=== PATIENT | male | born 1935 | race Caucasian/White ===

== ENCOUNTER 2024-02-13 14:24 | Outpatient (CLI) | payer MEDICARE ==
[~2024-02-13 14:24] MED LIST: ALLO100T PO; AMLO5TAB16 PO; ASPI-1071 PO; ATOR40TA72 PO; FURO20TA4 PO; GABA300T28 PO; HYDR-3972 PO; LATANOPROST EACHEYE; LEVO150T8 PO; METO-384 PO; SYMBICORT INH
[2024-02-13] MEDS ORDERED: iohexol 350 MG/ML 50ML vial IV ONE (15:01)
[2024-02-13] MEDS ORDERED: iohexol 350MG/ML 100ml bottle IV ONE (15:01)
== END 2024-02-13 23:59 | disposition home or self-care (01) ==
LOC: RAD 14:24
PROVIDERS: ATTEND Internal Medicine Interventional Cardiology
DX: I70.213 Atherosclerosis of native arteries of extremities with intermittent claudication, bilateral legs (principal); I71.40 Abdominal aortic aneurysm, without rupture, unspecified; M47.816 Spondylosis without myelopathy or radiculopathy, lumbar region; K57.30 Diverticulosis of large intestine without perforation or abscess without bleeding; I65.23 Occlusion and stenosis of bilateral carotid arteries; N26.1 Atrophy of kidney (terminal); M19.072 Primary osteoarthritis, left ankle and foot
CPT/HCPCS: 75635; J3490; Q9967